=== PATIENT | male | born 2000 | race Two or more races ===

== ENCOUNTER 2024-12-09 14:25 | Emergency (ER) | payer OTHER, SELFPAY ==
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
[2024-12-09 14:48] VITALS: BP 134/76; PULSE 93; RESP 18; TEMP 36.3; O2SAT 99; BMI 20.2
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
[2024-12-09 16:16] VITALS: BP 119/64; PULSE 78; RESP 14; O2SAT 99
[2024-12-09] MEDS: Acetaminophen 325 MG TABLET 975 MG PO (16:37)
[2024-12-09] MEDS: Cyclobenzaprine HCl 10 MG TABLET PO (16:37)
--- OUTSIDE RECORDS SUMMARY | 2024-12-09 18:03 | XMS_ITS | Clinical Summary ---
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 Name Role Phone Isabella, Tylor [employer] TE[employer]ER Primary Care Provider [phone] Source Comments PLEASE NOTE, if this patient is a minor, it may be UNLAWFUL to discuss sensitive information that is contained in these records (such as FAMILY PLANNING, MENTAL HEALTH or SUBSTANCE ABUSE) with the minor patient's parent or other person without the patient's specific authorization.[facility] Allergies No known active allergies Medications nicotine (NICODERM, STEP 2) 14 mg/24 hr patchIndication s:Vapes nicotine containing substance Place 1 Patch onto the skin once daily (every 24 hours) 42 Patch 06/29/2023 Active nicotine (NICODERM, STEP 3) 7 mg/24 hr patchIndication s:Vapes nicotine containing substance Place 1 Patch onto the skin once daily (every 24 hours) Start after 14mcg regimen 14 Patch 06/29/2023 Active buPROPion SR (WELLBUTRIN SR) 150 mg 12 hr tabletIndicatio ns:Vapes nicotine containing substance Take 1 Tablet by mouth 2 (two) times daily 180 Tablet 06/29/2023 Active Active Problems Problem Noted Date Diagnosed Date Vapes nicotine containing substance 06/29/2023 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 Hollins, [facility] - c/w branchial remnant ; recommend excision ; underwent excision 12-06-16; tolerated procedure well Immune to varicella 11/13/2016 Overview (11/13/2016): By serology 11-10-16 Contact with and (suspected) exposure to tubercu losis 11/13/2016 Overview (11/13/2016): TB quantiferon neg 11-10-16 Not immune to hepatitis B virus 11/13/2016 Overview (11/13/2016): Hep BsAg neg; Hep BsAb neg 11-10-16 Immunizations Immunization Administration Dates Next Due Flu, Preservative Free 06/29/2023,11/10/2021, HEP B, PED/ADOL 05/03/2017,11/30/2016,07/14/2016 HPV 9 (Gardasil) 11/29/2017,11/10/2016 Hep A, Ped/adol, 2 Dose 11/29/2017,05/03/2017 INFLUENZA, SEASONAL, INJECTABLE 07/14/2016 IPV 07/26/2017,11/10/2016,07/14/2016 MENINGOCOCCAL MCV4P (MENACTRA) 02/27/2018,2016,07/14/2016 MMR (MMR II/Priorix) 11/30/2016,07/14/2016 PNEUMOCOCCAL CONJUGATE PCV 13 02/27/2018 TDAP 11/10/2016,07/14/2016 Td (adult), 5 Lf tetanus tox oid, preservative free 07/26/2017 Varicella, Live Vaccine 11/30/2016,07/14/2016 Family History Medical History Relation Name Comments No Known Problems Father from mom Arthritis Mother back, shoulder pain Hearing loss Mother uncertain of ca use No Known Problems Sister 1 No Known Problems Sister 2 Relation Name Status Comments Father from mom Alive Mother Alive Sister 1 Alive Sister 2 Alive Social History Tobacco Use Types Packs/Day Years Used Date Smoking Tobacco: Some Days Cigarettes Passive Smoke Exposure: Yes Smokeless Tobacco: Former Tobacco Cessation:Ready to Q uit: Yes; Counseling Given: Yes Comments:father is smoking Alcohol Use Standard Drinks/Week Comments No 0 (1 standard drink = 0.6 oz pur e alcohol) Social Connections Answer Date Recorded Connectedness 0 05/24/2024 Financial Resource Strain Answer Date R ecorded Financial Resource Strain 0 2018 Stress Answer Date Recorded Stress 0 04/28/2019 Physical Activity Answer Date Recorded Physical Activity 0 04/28/2019 Food Insecurity Answer Date Recorded Food 0 05/30/2024 Transportation Needs Answer Date Record ed Transportation 0 04/28/2019 Housing Stability Answer Date Recorded Housing 0 04/28/2019 Safety and Environment Answer Date Jose rded Safety 0 04/28/2019 Utilities Answer Date Recorded Utilities 0 04/28/2019 Employment Answer Date Recorded Stress 0 05/24/2024 Sex and Gender Information Value Date Recorded Sex Assigned at Male 07/26/2017 12:05 PM PST Legal Sex Male 12:40 PM PST Gender Identity Male 07/26/2017 12:05 PM PST Sexual Orientation Don't know 07/26/2017 12 :05 PM PST Occupation Industry Job Start Date Job End Date 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 Not on file No t on file Not on file Last Filed Vital Signs Vital Sign Reading Time Taken Comments Blood Pressure 110/60 06/29/2023 10:57 AM EDT Pulse 71 06/29/2023 10:57 AM EDT Temperature 36.7 ??C (98.1 ??F) 06/29/2023 10:57 AM E DT Respiratory Rate 20 06/29/2023 10:57 AM EDT Oxygen Saturation 98% 06/29/2023 10:57 AM EDT Inhaled Oxygen Concentration - - Weight 66.2 kg (146 lb) 06/29/2023 10:57 AM EDT Height 180.3 cm (5' 11 ) 06/29/2023 10:57 AM EDT Body Mass Index 20.36 06/29/2023 10:57 AM EDT Plan of Treatment Health Maintenance Due Date Last Done Comments Anxiety Screening 2002 Imm-Pneumococcal (2 of 2 - PPSV23) 04/24/20182017 [id number] ( - season) 2024 022 Imm-Influenza (#1) 2024 06/29/2023, 0 11/10/2021, 05/03/2017, Additional history exists Tobacco Cessation Counseling (#1) 06/28/2024 023 Annual Preventive Care Visit 06/29/2024 06/29/2023 Tobacco Screening 06/29/2024 06/29/2023 Alcohol and Drug Screen 09/04/2024 06/29/2023, 11/10 Depression Annual Screen 09/04/2024 06/29/2023 Hypertension Screening (#1) 06/28/2026 Imm-DTaP/Tdap/Td (4 - Td or Tdap) 07/26/2027 07/26/2017, 11/10/2016, 07/14/2016 Imm-Hepatitis B Completed 05/03/2017, 11/03, 07/14/2016 Imm-HPV Completed 11/29/2017, 11/10/2016 HIV Screening Completed 06/29/2023 Hepatitis C Screening Completed 06/29/2023 Procedures Procedure Name Priority Date/Time Associated Diagnosis Comments HIV 1/2 AG & AB W/RFLX (4TH GEN) Routine 06/29/2023 11:43 AM EDT Examination, medical, general HEPATITIS C AB W/RFLX HCV RNA, QT, RT PCR Routine 06/29/2023 11:43 AM EDT Examination, medical, general from Last 3 Months or Most Recently Relevant to Health Maintenance Results * HEPATITIS C AB W/RFLX HCV RNA, QT, RT PCR (06/29/2023 11:43 AM EDT) HEPATITIS C ANTIBODY NON-REACT WILIAN NON-REACT WILIAN [facility] Comment: HCV antibody was non-reactive. There is no laboratory evidence of HCV infection. In most cases, no further action is required. However, if recent HCV exposure is suspected, a test for HCV RNA (test code 69587) is suggested. For additional information please refer to http://education.[employer]/faq/VRX23a5 (This link is being provided for informational/ educational purposes only.) Blood Blood / Unknown 06/29/2023 1 1:43 AM EDT 06/29/2023 11:43 AM EDT Narrative [employer] - 07/04/2023 4:49 AM EDT FASTING:YES Burke Mason [employer] TE[employer] - BLOOD DRAW Edited R esult - Final [employer] [address] [place] [id number], [place] [facility] [address] [id number] * HIV 1/2 AG & AB W/RFLX (4TH GEN) (06/29/2023 11:43 AM EDT) HIV AG/AB, 4TH GEN NON-REAC TIVE NON-REAC TIVE [facility] Comment: HIV-1 antigen and HIV-1/HIV-2 antibodies were not detected. There is no laboratory evidence of HIV infection. PLEASE NOTE: This information has been disclosed to you from records whose confidentiality may be protected by state law. ??If your state requires such protection, then the state law prohibits you from making any further disclosure of the information without the specific written consent of the person to whom it pertains, or as otherwise permitted by law. A general authorization for the release of medical or other information is NOT sufficient for this purpose. ?? For additional information please refer to http://education.[employer]/faq/ZYN473 (This link is being provided for informational/ educational purposes only.) The performance of this assay has not been clinically validated in patients less than 2 years old. 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
[2024-12-09 18:07] VITALS: BP 122/60; PULSE 71; RESP 16; TEMP 36.8; O2SAT 100
[2024-12-09 19:06] VITALS: BP 122/60; PULSE 71; RESP 16; TEMP 36.8; O2SAT 100
== END 2024-12-09 19:06 | disposition home or self-care (01) ==
PROVIDERS: Emergency Provider Internal Medicine
DX: S13.4XXA Sprain of ligaments of cervical spine, initial encounter (principal); S09.90XA Unspecified injury of head, initial encounter; S79.911A Unspecified injury of right hip, initial encounter; R07.89 Other chest pain; R51.9 Headache, unspecified; R07.81 Pleurodynia; M25.551 Pain in right hip; V43.52XA Car driver injured in collision with other type car in traffic accident, initial encounter; Y93.9 Activity, unspecified; Y92.410 Unspecified street and highway as the place of occurrence of the external cause; Y99.8 Other external cause status
CPT/HCPCS: 70450; 71101; 72125; 73502; 99284

== ENCOUNTER → 2024-12-09 15:58 | Outpatient (BNV) | payer MEDICAID, SELFPAY | PROVIDERS: Emergency Provider Internal Medicine; Visit Provider Radiology Diagnostic Radiology | DX: M54.2 Cervicalgia (principal); S06.0X9A Concussion with loss of consciousness of unspecified duration, initial encounter; R07.9 Chest pain, unspecified; M25.551 Pain in right hip; R10.2 Pelvic and perineal pain | CPT/HCPCS: 70450; 71101; 72125; 73502 ==